=== PATIENT | female | born 1985 | race Caucasian/White ===

== ENCOUNTER 2024-02-12 12:50 | Day surgery (SDC) | payer OTHER, SELFPAY ==
[2024-02-12] VITALS (11 sets, daily range): BP systolic 96–112; BP diastolic 64–78; PULSE 69–99; RESP 15–77; TEMP 36.2–36.9; O2SAT 97–100; BMI 24.3
--- NOTE | 2024-02-12 13:20 | US_ITS ---
STUDY: ULTRASOUND OF THE FEMALE PELVIS - COMPLETE REASON FOR EXAM: Female, 38 years old. Pelvic pain, 6 weeks post miscarriage TECHNIQUE: Transvaginal TECHNICAL QUALITY: Adequate. COMPARISON: None. FINDINGS: The uterus is anteverted and is in a midline position. The uterus measures 9.4 cm x 4.9 cm x 3.8 cm. Normal uterine cervix. The endometrium measures 12.9 mm in thickness, and is hyperechoic and heterogeneous in appearance. There is no demonstrated endometrial mass. There is no demonstrated myometrial mass. I.U.D. - The patient does not have an I.U.D. The right ovary is visualized. The right ovary measures 3.8 cm x 3.1 cm x 1.6 cm. There is a 1.8 cm x 2.2 cm x 1.3 cm dominant follicle in the ovary. There is no visualized right adnexal mass or complex lesion. There is normal arterial and normal venous vascularity. The left ovary is visualized. The left ovary measures 5.3 cm x 3.2 cm x 3 cm. There is a 4.3 cm x 2.5 cm x 2 cm left ovarian cyst. There is no visualized left adnexal mass or complex lesion. There is normal arterial and normal venous vascularity. There is no fluid in the cul-de-sac. US/Transvaginal Non- IMPRESSION: Heterogeneous thickening of the endometrium suggestive of possible retained product of conception. Left ovarian cyst. Electronically Signed: Jose Zabala MD at 14:56 EDT ,
--- NOTE | 2024-02-12 13:22 | CT_ITS ---
STUDY: CT ABDOMEN AND PELVIS WITHOUT CONTRAST REASON FOR EXAM: Female, 38 years old. Abdominal pain RADIATION DOSAGE (If Supplied By Facility): CTDIvol = ( 12.87 ) mGy, DLP = ( 621.01 ) mGycm TECHNIQUE: Transaxial images were obtained from the dome of the diaphragm to the symphysis pubis without oral contrast, and without intravenous contrast. Sagittal and coronal images were reconstructed. Individualized dose optimization techniques were used for this CT. COMPARISON: None. FINDINGS: The visualized lung bases are unremarkable. The visualized portions of the heart are within normal limits. Normal liver. Normal gallbladder and extrahepatic biliary system. Normal spleen. Normal pancreas. Normal bilateral adrenal glands. Normal right kidney. Normal left kidney. Normal visualized stomach. Normal small intestine. Normal colon. The appendix is visualized and appears normal. Normal abdominal aorta. Normal inferior vena cava. Normal retroperitoneum. Normal urinary bladder. The uterus is enlarged. There is heterogeneous thickening of the endometrium measuring 2.3 cm. This is acute with the patient''s history of recent miscarriage and possible retained products of conception. Normal abdominal wall. Normal osseous structures. CT/Abdomen/Pelvis without Cont IMPRESSION: Thickening of the endometrium measuring 2.3 cm. This is suggestive of a post miscarriage with retained products. Electronically Signed: Jose Zabala MD at 14:30 EDT ,
--- NOTE | 2024-02-12 13:22 | ED.VIS.FEGU ---
HPI HPI - Female History of Present Illness Chief Complaint: Vag Bld, Preg Detail of Chief Complaint: Vaginal bleeding and abdominal pain Informant: patient Narrative Narrative: Patient presents to the emergency department with complaint vaginal bleeding and lower abdominal pain. Patient states that she had a miscarriage January 03. She has been having intermittent fever since that time. 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 She tells me she had an ultrasound last week that showed some remnant product within the uterus and apparently was told would need a D&C. Patient presents to the ER for evaluation for ongoing right lower quadrant abdominal pain for about a week. Still having small amounts of discharge from her vagina with some blood. Patient is with 4 miscarriages. PFSH PFSH Home Medications ?Medication ?Instructions ?Recorded ?Last Taken ?Type fish, borage, flaxseed oils-omega 400 mg PO DAILY preg 05/07/16 05/30/16 08:00 History 3,6,9 cb #1 400 mg-400 mg-400 mg 1 cap ([place] 3-6-9 Complex) vit 122-ferrous fumarate 1 ea PO DAILY preg 05/07/16 05/30/16 08:00 History 27 mg iron-folic acid 800 mcg 1 tablet ( Multi) Allergy/AdvReac Type Severity Reaction Status Date / Time No Known Allergies Allergy Verified 02/12/24 12:50 Social History Smoking Status: Never smoker ROS ROS ED Review of Systems ROS Unobtainable: other Constitutional Constitutional ED: Reports lethargy; Denies chills, fever(s), sweats or weight loss Eyes Eyes: Denies blurry vision, change in vision or diplopia ENT ENT ED: Denies rhinorrhea or sore throat Cardiovascular Cardiovascular: Denies chest pain, orthopnea or racing heartbeat Respiratory/Chest Respiratory/Chest: Denies cough, dyspnea, dyspnea on exertion, orthopnea or sputum Gastrointestinal Gastrointestinal: Reports abdominal pain; Denies diarrhea, nausea or vomiting Genitourinary Genitourinary ED: Reports other Details: Vaginal bleeding, decreased urine output ; Denies dysuria, hematuria or urinary frequency Musculoskeletal Musculoskeletal: Denies arthralgias, back pain, myalgias or neck pain Integumentary Denies abscess, Abrasions or rash Neurologic Neurologic: Reports other Details: Dizziness ; Denies headache(s) or weakness Psychiatric Psychiatric: Denies anxiety, depression or suicidal thoughts Endocrine Endocrinology: Denies polydipsia, polyphagia or polyuria Hematologic/Lymphatic Hematologic/Lymphatic: Denies easy bleeding, easy bruising or lymphadenopathy Allergic/Immunologic Allergic/Immunologic ED: Denies mouth swelling, tongue swelling or urticaria EXAM Physical Exam Const Vital Signs: 02/12/24 12:51 02/12/24 14:46 Temperature 97.5 F L Temperature Source Temporal Pulse Rate 99 88 Respiratory Rate 16 19 H Blood Pressure 112/76 109/75 Blood Pressure Mean 88 86 Pulse Ox 98 98 Oxygen Delivery Method Room Air Room Air Positive well nourished and well developed General Appearance ED: well developed and NAD HEENT Reports TM's clear and moist mucous membranes normocephalic and atraumatic; Negative for trauma or tenderness Tympanic Membrane ED: Yes TM's clear Eyes PERRL and EOMs intact bilaterally General Eye ED: Negative for pale conjunctiva or scleral icterus Neck no lymphadenopathy, supple and no JVD General: Negative for tenderness Chest Wall inspection of chest normal and palpation of chest normal Chest: Negative for tenderness Resp normal respiratory effort and clear to auscultation bilaterally Effort and Inspection: Negative for respiratory distress or pain with movement Auscultation: Negative for rhonchi, wheezes or diminished lung sounds Cardio regular rate, regular rhythm, S1 normal heart sound, S2 normal heart sound and no murmurs Peripheral Pulses: pulses 2+ throughout GI normal to inspection, nondistended, normoactive bowel sounds, soft to palpation, non-tender, non-distended and no masses Back/Spine no CVA tenderness and no thoracic nor lumbar tenderness Extremity normal to inspection General Extremety ED: Negative for edema General Extremity: Negative for edema Neuro oriented x3, CN's II-XII intact bilaterally, no sensory deficits noted and gait normal Sensorium / Orientation: awake, alert, oriented to person, oriented to place and oriented to time Motor Exam: strength 5/5 throughout and strength abnormal Psych mental status grossly normal Skin no rashes or lesions noted and no wounds MDM MDM MDM Narrative Medical decision making narrative: Patient presents with vaginal bleeding and ongoing abdominal pain and fevers. Patient tells me she had a miscarriage January 03. Patient had an ultrasound that showed retained products last week and was told she would need a D&C. Patient continues with pain. IV line established. CBC with differential of patient awakened 11.5 with hemoglobin 13.4 and platelet count of 291. Chemistries unremarkable. Quant was 4. Urinalysis normal. Blood type was A-. Patient tells me she had RhoGAM 3 weeks after her miscarriage. Patient had a pelvic ultrasound that showed thickened endometrium consistent with retained products. Patient also had a CT scan of the abdomen pelvis that showed a thickened endometrium otherwise no acute process. Discussed case with [employer] OPERATOR on-call Dr. Verde who will evaluate patient for D&C for retained products. Lab Data Attestation: I reviewed the patient's lab results. Labs: Laboratory Results - last 24 hr 02/12/24 02/12/24 02/12/24 13:00 13:04 14:25 WBC 11.5 H RBC 4.53 Hgb 13.4 Hct 39.8 MCV 87.9 MCH 29.6 MCHC 33.7 RDW Std Deviation 41.1 RDW Coeff of Roger 12.8 Plt Count 291 MPV 9.6 Immature Gran % (Auto) 0.300 Neut % (Auto) 70.3 H Lymph % (Auto) 20.8 Donley % (Auto) 7.5 Eos % (Auto) 0.7 Baso % (Auto) 0.4 Absolute Neuts (auto) 8.1 H Absolute Lymphs (auto) 2.40 Nucleated RBC % 0 Sodium 136 Potassium 4.0 Chloride 104 Carbon Dioxide 26.0 Anion Gap 6 BUN 3 L Creatinine 0.72 Estim Creat Clear Calc 123.45 Est GFR (MDRD) Af Amer 116 Est GFR (MDRD) Non-Af 96 BUN/Creatinine Ratio 4.1 L Glucose 103 Calcium 9.0 Total Bilirubin 0.30 AST 16 ALT 25 Alkaline Phosphatase 54 Total Protein 7.2 Albumin 3.6 Globulin 3.6 Albumin/Globulin Ratio 1.0 HCG, Quant 4 Urine Color Yellow Urine Clarity Clear Urine pH 7.0 Ur Specific Perry 1.005 Urine Protein Negative Urine Glucose (UA) Normal Urine Ketones Negative Urine Occult Blood Negative Urine Nitrite Negative Urine Bilirubin Negative Urine Urobilinogen Normal Ur Leukocyte Esterase Negative Urine RBC 0 SEEN Urine WBC 0 SEEN Ur Squamous Epith Cells 0 SEEN Urine Bacteria 0 SEEN Urine Mucus 0 SEEN Blood Type A NEGATIVE Cancelled Antibody Screen POSITIVE Radiography Diagnostic Testing: Clinical Impression(s) from Imaging Studies Transvaginal US 02/12/24 13:20 IMPRESSION: Heterogeneous thickening of the endometrium suggestive of possible retained product of conception. Left ovarian cyst. Electronically Signed: Jose Zabala MD at 14:56 EDT , Abdomen/Pelvis CT 02/12/24 13:22 IMPRESSION: Thickening of the endometrium measuring 2.3 cm. This is suggestive of a post miscarriage with retained products. Electronically Signed: Jose Zabala MD at 14:30 EDT , Discharge Plan Triage Chief Complaint: Vag Bld, Preg ED Provider: [place] Dx/Rx/DC Orders Clinical Impression: Incomplete , Retained products of conception Prescriptions: No Action fish,bora,flax oils-om3,6,9no1 [[place] 3-6-9 Complex] 400 MG capsule 400 mg PO DAILY [id number] [ Multi] 1 EACH tablet 1 ea PO DAILY Primary Care Provider: Syed Valera Referrals: Syed Valera DO [Primary Care Provider] - Print Language: Swazi Disposition Disposition: [facility]
[2024-02-12 13:41] LABS: Absolute Neutrophil Count 8.1 X10^3/uL (2.0-7.7); Basophil# 0.05 X10^3/uL; Basophil% 0.4 % (0-1); Eosinophil# 0.08 X10^3/uL; Eosinophils% 0.7 % (0-5); Hematocrit 39.8 % (37-47); Hemoglobin 13.4 g/dL (12.0-15.0); Lymphocyte % 20.8 % (19-41); Mean Corp Hgb Conc 33.7 g/dL (32-36); Mean Corpuscular Hgb 29.6 pg (27.0-32.0); Mean Corpuscular Volume 87.9 fL (81-99); Mean Platelet Vol. 9.6 fl (6.2-12.0); Monocyte# 0.87 X10^3/uL; Monocyte% 7.5 % (0-10); NRBC Flagged by Analyzer 0 % (0-5); Neutrophil % 70.3 % (47-70); Platelet Count 291 K/mm3 (150-450); RBC Distribution Width CV 12.8 % (11.6-14.6); RBC Distribution Width SD 41.1 fl (35.1-43.9); Red Blood Count 4.53 M/mm3 (4.2-5.4); White Blood Count 11.5 K/mm3 (4.4-11.0)
[2024-02-12] MEDS: 0.9% Normal Saline (1000mL) 1,000 ML 999 ML IV (14:31)
[2024-02-12 14:35] LABS: AST(SGOT) 16 U/L (15-37); Alanine Aminotransfer ALT/SGPT 25 U/L (13-56); Albumin, Serum 3.6 g/dL (3.2-5.0); Alkaline Phosphatase 54 U/L (45-117); Anion Gap 6 (5-15); BUN 3 mg/dL (7-18); BUN/Creat Ratio 4.1 RATIO (10-20); Chloride 104 mmol/L (98-107); Creatinine, Serum 0.72 mg/dL (0.55-1.02); EST Glomerular Filtration Rate 96 mL/min (>60); Est Glom Filt Rate - Afr Amer 116 mL/min (>60); Estimated Creatinine Clearance 123.45 ml/min; Globulin 3.6 g/dL (2.2-4.2); Glucose 103 mg/dL (74-106); Protein, Total 7.2 g/dL (6.4-8.2); Sodium Level 136 mmol/L (136-145)
[2024-02-12 14:38] LABS: hCG Titer Quant., Serum 4 mIU/mL (1-3)
[2024-02-12 14:40] LABS: Bacteria 0 SEEN /hpf (None Seen); Mucous, Urine 0 SEEN /hpf (<or=2+); Red Blood Cells-Urine 0 SEEN /hpf (0-5); Squamous Epithelial Cells - UA 0 SEEN /hpf (5-10); White Blood Cells 0 SEEN /hpf (0-5)
[2024-02-12 14:50] LABS: Color, Urine Yellow (Yellow); Glucose, Dipstick Normal (Normal); Ketone-Dipstick Negative (Negative); Leukocyte Esterase-Dipstick Negative /ul (Negative); Nitrite-Dipstick Negative (Negative); Occult Blood-Urine Negative /ul (Negative); Protein-Dipstick Negative (Negative); Specific Gravity, Urine 1.005 (1.002-1.030); Urine Bilirubin Dipstick Negative (Negative); Urine Clarity Clear (Clear); Urine Urobilinogen Normal (Normal)
[2024-02-12] MEDS: Lactated Ringers 1,000 ML 15 ML IV (15:51)
--- NOTE | 2024-02-12 16:18 | PCM.PRE.AN2 ---
ASA Classification* ASA Classification ASA Classification: 2 and E Assessment & Plan Anesthesia* Anesthesia Assessment Anesthesia Assessment: Discussed sedation and/or anesthesia options, risks, benefits, and alternatives with patient/parents/legal guardian/POA. Questions invited. The patient/parents/legal guardian/POA seems to understand and agrees to proceed with anesthesia plan. Reviewed the physical assessment, medical history, allergy history and patient home medications list prior to surgery/procedure/anesthetic and documented any changes. Performed airway and anesthesia risk assessments. Anesthesia Type Anesthesia Type: MAC History Source History Obtained from:: Patient and Chart Anesthesia Focused Assessment* Temperature: 98.1 F Pulse Rate: 81 Blood Pressure: 106/78 Respiratory Rate: 77 Pulse Ox: 98 Oxygen Delivery Method: Room Air Airway Assessment Mouth opens: >3 cm Mallampati Score: II Teeth Condition: Loose and Missing (Several missing teeth. Rest are tight.) Neck Range of motion (ROM): Limited ROM (Slight) Focused Labs Anesthesia Preop lab: CBC WBC 11.5 K/mm3 (4.4-11.0) H 02/12/24 13:04 RBC 4.53 M/mm3 (4.2-5.4) 02/12/24 13:04 Hgb 13.4 g/dL (12.0-15.0) 02/12/24 13:04 Hct 39.8 % (37-47) 02/12/24 13:04 Plt Count 291 K/mm3 (150-450) 02/12/24 13:04 CHEMISTRY Potassium 4.0 mmol/L (3.5-5.1) 02/12/24 13:00 Sodium 136 mmol/L (136-145) 02/12/24 13:00 BUN 3 mg/dL (7-18) L 02/12/24 13:00 Creatinine 0.72 mg/dL (0.55-1.02) 02/12/24 13:00 Glucose 103 mg/dL (74-106) 02/12/24 13:00 COAG HCG, Quant 4 mIU/mL (1-3) 02/12/24 13:04 Pre-Assessment Diagnosis/Proposed Procedure Planned Operative Procedure(s): Dilatation and curettage using suction Anesthesia History Anesthesia History - instructor nurse: Anesthesia History - instructor nurse Hx Hospitalization Any Problems With Anesthesia Cholinesterase deficiency You/Your Family Experience fever (hyperthermia) with Relationship Recent Exposure to Contagious Disease Does patient have nerve No 02/12/24 15:29 stimulator Patient instructed to have device shut off --Does patient have Pacemaker No 02/12/24 15:49 or ICD? When Was Last Pacemaker Check QUESTION #4 FULL TEXT: You/Your Family Experience fever (hyperthermia) with Anesthesia Last Oral Intake Last Oral intake: Last Oral Intake NPO since 13:00 02/12/24 15:49 Meds taken in AM with sips of No 02/12/24 15:49 water? Meds patient instructed to take am of surgery Any additional information?: Yes NPO since: 13:00 (Patient had vegetables and applesauce at 1:00) PONV PONV - instructor nurse: PONV - instructor nurse Female HX of Motion Sickness HX of N/V After Surgery Non-Smoker Duration of Surgery greater than 60 minutes Number of Risk Factors PONV Score Height & Weight Height & Weight: Anesthesia: Height & Weight Height 6 ft 02/12/24 15:49 Weight: 81.284 kg 02/12/24 15:49 Body Mass Index (BMI) 24.3 02/12/24 15:49 Respiratory Assessment Respiratory Assessment - instructor nurse: Respiratory Tract Infection Hx - instructor nurse Hx Respiratory Tract Infection Any additional information?: Yes Hx Respiratory Tract Infection: No STOP Sleep Apnea STOP Sleep Apnea - instructor nurse: STOP Sleep Apnea - instructor nurse Hx Hypertension No 02/12/24 15:29 Hx Sleep Apnea No 02/12/24 15:29 CPAP BIPAP Do you snore loudly (louder No 02/12/24 15:29 than talking or can be heard Do you often feel tired/ No 02/12/24 15:29 fatigued/ sleepy during daytime? Has anyone observed you stop No 02/12/24 15:29 breathing during sleep? STOP Results Negative 02/12/24 15:29 QUESTION #5 FULL TEXT : Do you snore loudly (louder than talking or can be heard through closed doors)? 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 Specify any problems Hx of Preganancy in last 3 Months Nurse Filling Out Transfusion & Questions: Date: Time: Patient unable to answer at this time (ie. confused, unrespo /Reproduction History /Reproductive History - instructor nurse: /Reproductive Hx- instructor nurse Hx Now Gestational Age (in weeks): EDC: Hx Hx Para Hx Section SAB No 02/12/24 12:51 Active Medications Active Medications: Current Medications Generic Name Dose Route Start Last Admin Trade Name Freq PRN Reason Stop Dose Admin Sodium Chloride 1,000 mls @ 150 mls/hr 02/12/24 13:25 IV .[id number] DOMINGO Lactated Ringer's 1,000 mls @ 15 mls/hr 02/12/24 15:45 02/12/24 15:51 IV 15 mls/hr .Q48H DOMINGO Administration PFSH Home Medications ?Medication ?Instructions ?Recorded ?Last Taken ?Type fish, borage, flaxseed oils-omega 400 mg PO DAILY preg 05/07/16 02/12/24 History 3,6,9 cb #1 400 mg-400 mg-400 mg cap ([place] 3-6-9 Complex) vit 122-ferrous fumarate 1 ea PO DAILY preg 05/07/16 02/12/24 History 27 mg iron-folic acid 800 mcg tablet ( Multi) Allergy/AdvReac Type Severity Reaction Status Date / Time No Known Allergies Allergy Verified 02/12/24 16:03 Social History Smoking Status: Never smoker Review of Systems (Anesthesia) ROS Narrative System reviewed and no additional complaints, except as documented.
[2024-02-12] MEDS: Doxycycline 100 MG CAPSULE PO (16:46)
--- NOTE | 2024-02-12 16:47 | PCM.HP.OB ---
HPI - General HPI Narrative KANA RAMIREZ, is a 38 F who presents bleeding for the last month after a miscrriage, normal hg and hcg 4, 14 mm lining with possible retained POC. her usual list of first job ideas is Dr Hand. she has had some fevers on and off lsat week none today PFSH PFSH Home Medications ?Medication ?Instructions ?Recorded ?Last Taken ?Type fish, borage, flaxseed oils-omega 400 mg PO DAILY preg 05/07/16 02/12/24 History 3,6,9 cb #1 400 mg-400 mg-400 mg cap ([place] 3-6-9 Complex) vit 122-ferrous fumarate 1 ea PO DAILY preg 05/07/16 02/12/24 History 27 mg iron-folic acid 800 mcg tablet ( Multi) Allergy/AdvReac Type Severity Reaction Status Date / Time No Known Allergies Allergy Verified 02/12/24 16:03 Social History Smoking Status: Never smoker History Elective abortions Hx Para 4 Spontaneous abortions Hx # Term Pregnancies Ectopic pregnancies Hx # Pregnancies Multiple births # of living children ROS Review of Systems ROS Unobtainable: due to mental status and other Constitutional Constitutional: Reports systems reviewed and no addt'l complaints, except as documented; Denies as per HPI, change in weight, fatigue, fever(s), malaise, weakness or other Eyes Eyes: Reports systems reviewed and no addt'l complaints, except as documented; Denies as per HPI, change in vision or other ENT HEENT: Reports as per HPI and dizziness; Denies dry mouth, headache(s), loss taste/smell, nasal congestion, nasal discharge, neck pain, sore throat or other Respiratory/Chest Respiratory/Chest: Reports systems reviewed and no addt'l complaints, except as documented Gastrointestinal Gastrointestinal: Reports systems reviewed and no addt'l complaints, except as documented and nausea; Denies vomiting Musculoskeletal Musculoskeletal: Reports systems reviewed and no addt'l complaints, except as documented; Denies back pain or joint pain Neurologic Neurologic: Reports systems reviewed and no addt'l complaints, except as documented Psychiatric Psychiatric: Reports systems reviewed and no addt'l complaints, except as documented Endocrine Endocrinology: Reports systems reviewed and no addt'l complaints, except as documented Hematologic/Lymphatic Hematologic/Lymphatic: Reports systems reviewed and no addt'l complaints, except as documented Vital Signs Vital Signs Vital Signs: 02/12/24 12:51 02/12/24 14:46 02/12/24 15:29 Temperature 97.5 F L 98.1 F Temperature Source Temporal Oral Pulse Rate 99 88 88 Respiratory Rate 16 19 H 19 H Blood Pressure 112/76 109/75 109/75 Blood Pressure Mean 88 86 86 Blood Pressure Source Monitor Blood Pressure Position Semi-Fowlers Blood Pressure Location Right Arm Pulse Ox 98 98 97 Oxygen Delivery Method Room Air Room Air Room Air 02/12/24 15:31 02/12/24 16:28 Temperature 98.1 F 98.1 F Temperature Source Pulse Rate 81 81 Respiratory Rate 77 H 77 H Blood Pressure 106/78 106/78 Blood Pressure Mean 87 Blood Pressure Source Blood Pressure Position Blood Pressure Location Pulse Ox 98 98 Oxygen Delivery Method Room Air Weight Weight: 179 lb 3.2 oz Body Mass Index (BMI) 24.3 Physical Exam Const alert, oriented x3 and no apparent distress HEENT normocephalic Head and Scalp: atraumatic Eyes EOMs intact bilaterally and conjunctivae normal Neck full ROM, no lymphadenopathy, supple and thyroid normal General: trachea midline Lymph Lymphatic: no lymphadenopathy noted Resp normal respiratory effort, no retractions, no use of accessory muscles and clear to auscultation bilaterally Cardio regular rhythm GI normal to inspection, nondistended, normoactive bowel sounds, soft to palpation, non-distended and no masses Inspection: Negative for abdominal distention Back/Spine no CVA tenderness Extremity normal to inspection Skin no rashes or lesions noted Neuro moves all extremities and deep tendon reflexes 2+ bilaterally Motor Exam: clonus absent Psych mental status grossly normal Labs Labs Labs: Blood Type A NEGATIVE Antibody Screen POSITIVE Hct 39.8 % (37-47) Hgb 13.4 g/dL (12.0-15.0) Rubella IgG Antibody 18.9 IU/mL Hep Bs Antigen Negative (Negative) Group B Strep DNA Negative (Negative) Rhogam given: Yes Assessment & Plan (1) Retained products of conception: (2) Incomplete : PLAN: Plan After discussing the patient's diagnosis and treatment plan options, patient wishes to proceed with surgical management. I have discussed with the patient the risks, benefits, and alternatives of the procedure which include but are not limited to risks of anesthesia, bleeding, infection, possible damage to bowel, bladder, or surrounding vasculature which could lead to additional surgery to evaluate any complications. Patient agrees to procedure and wishes to proceed. ACOG/uptodate references given for additional information regarding procedure.
--- NOTE | 2024-02-12 16:49 | DCINST_ITS ---
Discharge Instructions Diet Discharge Diet: No restrictions Activity Discharge Activity: Return to Normal Activity, May Shower and May Take a Tub Bath (after 1 week) May resume sexual activity in: 1-2 weeks Weight Bearing Status: Weight bearing as tolerated Lifting Restrictions: none Dressing / Incision Call your doctor if you observe: Fever of 101 or Higher, Using more than 1 pad per hour, Shortness of breath and Uncontrolled pain Follow Up Care Please Follow Up With: Emily Verde MD When: Call [phone] to schedule appointment. Test Results: Test results from this visit will be discussed in further detail at your follow- up appointment, if applicable. Discharge Plan Admission Attending Provider: Emily Verde Primary Care Provider: Syed Valera Instructions Print Language: Luxembourgish Discharge Orders/Prescriptions Prescriptions: New doxycycline monohydrate 100 mg capsule 100 mg PO BID 14 Days Qty: 28 0RF No Action fish,bora,flax oils-om3,6,9no1 [[place] 3-6-9 Complex] 400 MG capsule 400 mg PO DAILY Multi 1 EACH tablet 1 ea PO DAILY Referrals / Follow Up: Syed Valera DO [Primary Care Provider] - Disposition Disposition (needs filled in before D/C Order can be placed): Home, Self Care
--- NOTE | 2024-02-12 16:49 | PCM.OPRPT ---
Problems Associated Problem List Diagnoses (1) Retained products of conception: (2) Incomplete : Report of Operation Date of Procedure: 02/12/24 Pre-Operative Diagnosis: see problem list Post-Operative Diagnosis: same Surgery/Procedure Performed:: Suction dilation and curettage Description of Surgical Findings:: retained POC after msicarriage 1 month ago Surgeon: Emily Verde retort condenser attendant: None Type of Anesthesia: Local MAC Special Medications: none Specimen's removed: POC Drains: none Estimated Blood Loss (mL): 50 Fluids Replaced: crystalloid Description of Procedure: Patient was taken to the operating room and placed under MAC local anesthesia. She was prepped and draped in the normal sterile fashion the dorsal lithotomy position. Bladder was drained of clear urine and anterior lip of the cervix was grasped and the uterus sounded to 8cm. Cervix was progressively dilated to allow passage of a 8mm suction curette. Progressive passes were made removing the retained products of conception without complication. Sharp curettage confirmed complete removal of the retained products. All instruments were removed from the vagina and excellent hemostasis was noted and the patient was taken to recovery in stable condition. Grafts/Implants Used: none Procedure Start Time: 19:04 Procedure Stop Time: 19:09 Complications none Admit VTE Documentation VTE Present on Admission: No VTE Mechan Device Prophylaxis: SCD's Procedures Urinary/Genital [id number]: 19102 Trmt of incomplete Ab, any TM
--- NOTE | 2024-02-12 17:15 | POC_PTH ---
PATIENT: KANA RAMIREZ LOC: [facility] [place] U#:[id number] AGE/SX: 38/F ROOM: RE02/12/[address]: Dr. Emily Verde MD : 1985 BED: DIS: 02/12/2024 SPEC #: [id number] RECD: 02/16/24 10:11 STATUS: JONATHAN REShanti #: [id number] ESTEE: 02/12/24 17:[address]: Emily Verde DEPT: SURGICAL PATHOLOGY RECD BY: Ghazal Flores ENTERED: 02/16/24 11:55 SP TYPE: PROD CONC OTHR DR: Dr. Syed Valera DO Tissues: Product of conception, NOS Procedures: Surgery Specimen Level IV HEADER OPERATION: D&C, suction PRE-OP DIAGNOSIS: Retained products of conception, incomplete TISSUE SUBMITTED: Products of conception MICROSCOPIC DIAGNOSIS Endometrium, curettage: Chorionic villi, decidualized stroma and trophoblastic cells (products of conception). AM: 02/17/2024 MICROSCOPIC DESCRIPTION Slides are reviewed. GROSS DESCRIPTION Received in fixative is one container labeled with the patient's name and designated Products of conception. The specimen consists of multiple fragments of pink hemorrhagic soft tissue measuring in aggregate 5.0 x 3.0 x 0.3cm. No tissue is identified. The entire specimen is submitted in two cassettes. 02/16/2024 TC:5 CPT:34813
--- NOTE | 2024-02-12 19:27 | POSTOPAN2_ITS ---
Anesthesia Postop Eval I Sum Postop Eval Completion status Anesthesia document: Postop Eval 1 completed: Yes Anesthesia Postop Eval I Summary Anesthesia Postop Eval I Summary: Anesthesia Postop Eval I: Assessment Summary Airway patent Yes 02/12/24 19:27 STAMPING MILL TENDER.[email or web address] Spontaneous unlabored Yes 02/12/24 19:27 STAMPING MILL TENDER.[email or web address] respirations Mental status nausea No 02/12/24 19:27 STAMPING MILL TENDER.[email or web address] Vomiting No 02/12/24 19:27 STAMPING MILL TENDER.[email or web address] Anesthesia Postop Eval I: Fluid Summary Crystalloid volume administer 300 02/12/24 19:27 STAMPING MILL TENDER.JCOTE (ml) Colloids volume administered ( ml) Blood Product volume administered (ml) Total IV fluid infused 300 02/12/24 19:27 STAMPING MILL TENDER.[email or web address] Anesthesia Postop Eval I: Summary Notes Anesthesia Complication No 02/12/24 19:27 STAMPING MILL TENDER.[email or web address] Anesthesia Complication Comment: Post-operative progress note Anesthesia: Postop Eval II Evaluation Mental status: Awake Pain Level: 0 nausea: No Vomiting: No
--- NOTE | 2024-02-12 19:27 | PCM.POST.ANE ---
Anesthesia: Postop Eval I Current Vital Signs Temperature: 98.4 F Pulse Rate: 69 Blood Pressure: 96/68 Respiratory Rate: 15 Pulse Ox: 100 Assessment Airway patent: Yes Spontaneous unlabored respirations: Yes nausea: No Vomiting: No Anesthesia Complication: No Fluid Hydration Crystalloid volume administer (ml): 300 Total IV fluid infused: 300 Progress Note Anesthesia document: Postop Eval 1 completed: Yes
--- NOTE | 2024-02-12 19:27 | PCM.POSTANE2 ---
Anesthesia Postop Eval I Sum Postop Eval Completion status Anesthesia document: Postop Eval 1 completed: Yes Anesthesia Postop Eval I Summary Anesthesia Postop Eval I Summary: Anesthesia Postop Eval I: Assessment Summary Airway patent Yes 02/12/24 19:27 LEAD [email or web address].[email or web address] Spontaneous unlabored Yes 02/12/24 19:27 LEAD [email or web address].[email or web address] respirations Mental status nausea No 02/12/24 19:27 LEAD [email or web address].[email or web address] Vomiting No 02/12/24 19:27 LEAD [email or web address].[email or web address] Anesthesia Postop Eval I: Fluid Summary Crystalloid volume administer 300 02/12/24 19:27 LEAD [email or web address].[email or web address] (ml) Colloids volume administered ( ml) Blood Product volume administered (ml) Total IV fluid infused 300 02/12/24 19:27 LEAD [email or web address].[email or web address] Anesthesia Postop Eval I: Summary Notes Anesthesia Complication No 02/12/24 19:27 LEAD ACCOUNTANT.[email or web address] Anesthesia Complication Comment: Post-operative progress note Anesthesia: Postop Eval II Evaluation Mental status: Awake Pain Level: 0 nausea: No Vomiting: No
== END 2024-02-12 20:03 | disposition home or self-care (01) ==
LOC: ED 15:22 → SDC 15:28 → AC 15:30
PROVIDERS: Emergency Provider Emergency Medicine; PCP Family Medicine; Visit Provider Obstetrics & Gynecology
PROC: (CPT 59812; principal; 2024-02-12 17:00)
DX: O03.4 Incomplete spontaneous abortion without complication (principal)
CPT/HCPCS: 59812; 74176; 76830; 80053; 81001; 84702; 85025; 86850; 86870; 86900; 86901; 88305; 99283; J7120; J2405; J2791